=== PATIENT | female | born 1990 | race Caucasian/White ===

== ENCOUNTER 2018-09-07 15:18 | Emergency (ER) | payer OTHER, SELFPAY ==
--- NOTE | 2018-09-07 16:58 | RAD REPORT ---
EXAM DESCRIPTION: RAD - Chest Single View - 09/07/2018 4:45 pm CLINICAL HISTORY: CHEST PAIN Chest pain. COMPARISON: No comparisons FINDINGS: Portable technique limits examination quality. The lungs are grossly clear. The heart is normal in size. No displaced fractures. IMPRESSION: No acute intrathoracic process suspected.
[2018-09-07] MEDS ORDERED: KETOROLAC 30 MG/ML INJ ONE (17:49)
[2018-09-07 19:17] LABS: Urine Blood NEGATIVE (NEG); Urine Glucose NEGATIVE (NEG); Urine Protein NEGATIVE (NEG)
[2018-09-07 19:18] LABS: Absolute Lymphocytes (CBC) 2.4 K/uL (0.7-4.9); Absolute Monocytes 0.4 K/uL (0.1-1.3); Absolute Neutrophil 8.3 K/uL (1.8-8.0); Basophils % 1.4 % (0-1.3); Eosinophils % 1.3 % (0-4.4); Lymphocytes % 20.7 % (15.3-44.8); MCH 28.3 pg (27.0-35.0); MCV 83.5 fL (80-100); MPV 9.2 fL (7.6-11.3); Monocytes % 3.7 % (3.3-12.3); RBC Red Blood Cell Count 5.86 M/uL (3.86-4.86)
[2018-09-07 19:23] LABS: BUN Blood Urea Nitrogen 11 mg/dL (7-18); Bicarbonate 25 mmol/L (21-32); Glucose Level 86 mg/dL (74-106); Potassium 3.7 mmol/L (3.5-5.1); Sodium Level 140 mmol/L (136-145); Troponin (Emerg Dept Use Only) < 0.02 ng/mL (0.0-0.045)
[2018-09-07] MEDS ORDERED: MORPHINE 4 MG/ML SYR ONE (19:43)
[2018-09-07] MEDS ORDERED: ONDANSETRON 4 MG/2 ML VIAL ONE (19:43)
[2018-09-07] MEDS ORDERED: DEXAMETHASONE 4 MG/ML VIAL ONE (20:07)
[2018-09-07] MEDS ORDERED: DIPHENHYDRAMINE 50 MG/ML VIAL ONE (20:07)
[2018-09-07] MEDS ORDERED: FAMOTIDINE 20 MG/2 ML VIAL IV ONE (20:08)
--- NOTE | 2018-09-07 20:30 | ER ---
Nurse's Notes [facility] Name: Lisa Vazquez Age: 28 yrs Sex: Female : 1990 Arrival Date: 09/07/2018 Time: 15:19 Bed 10 Private MD: out of town, doctor Diagnosis: Other chest pain Presentation: 09/07 15:30 Presenting complaint: Patient states: Pain to sternum that started suddenly when aj patient turned to reach for something. Patient reports pain is reproducible with deep inspiration and sometimes with movement. Transition of care: patient was not received from another setting of care. Onset of symptoms was September 07, 2018. Risk Assessment: Do you want to hurt yourself or someone else? Patient reports no desire to harm self or others. Initial Sepsis Screen: Does the patient meet any 2 criteria? No. Patient's initial sepsis screen is negative. Does the patient have a suspected source of infection? No. Patient's initial sepsis screen is negative. Note Patient drove herself to ER and ambulated in with steady gait. Care prior to arrival: None. 15:30 Method Of Arrival: Ambulatory 15:30 Acuity: KRISTA 4 15:32 Note Patient is making phone call while in triage, in NAD. Triage Assessment: 15:32 General: Appears in no apparent distress. comfortable, Behavior is calm, cooperative, aj appropriate for age. Pain: Complains of pain in mid-sternal area. Neuro: Level of Consciousness is awake, alert, obeys commands, Oriented to person, place, time, situation, Appropriate for age. Cardiovascular: Capillary refill < 3 seconds in bilateral fingers Patient's skin is warm and dry. Respiratory: Reports pain with respiration Airway is patent Respiratory effort is even, unlabored, Respiratory pattern is regular, symmetrical. Derm: Skin is intact, is healthy with good turgor, Skin is pink, warm \T\ dry. normal. 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 - Social history:: Smoking status: Patient/guardian denies using tobacco. - Ebola Screening: : Patient negative for fever greater than or equal to 101.5 degrees Fahrenheit, and additional compatible Ebola Virus Disease symptoms Patient denies exposure to infectious person Patient denies travel to an Ebola-affected area in the 21 days before illness onset No symptoms or risks identified at this time. Screenin:21 Abuse screen: Denies threats or abuse. Denies injuries from another. Nutritional iw screening: No deficits noted. Tuberculosis screening: No symptoms or risk factors identified. Fall Risk None identified. Assessment: 16:18 General: Appears uncomfortable, Behavior is cooperative. Pain: Complains of pain in iw mid-sternal area Pain radiates to right scapular area Pain currently is 8 out of 10 on a pain scale. Pain began 2 hours ago. Is continuous. Neuro: No deficits noted. Level of Consciousness is awake, alert, obeys commands, Oriented to person, place, time, situation, Moves all extremities. Full function. Cardiovascular: Patient's skin is warm and dry. Respiratory: Respiratory effort is even, unlabored, Respiratory pattern is regular, symmetrical. Derm: Skin is intact, is healthy with good turgor. Musculoskeletal: Range of motion: intact in all extremities. 19:10 Reassessment: Patient and/or family updated on plan of care and expected duration. Pain iw level reassessed. Patient is alert, oriented x 3, equal unlabored respirations, skin warm/dry/pink. pt rates pain 6/10. 19:50 Reassessment: During middle of morphine admin, it is noted that there is mild redness ss to R forearm. Pt reports mild itching. Administration stopped. 2 mg of morphine given. Pt denies CP, SOB. UZIEL Lakhani notified. Respiratory: Airway is patent Respiratory effort is even, unlabored, Respiratory pattern is regular, symmetrical, Breath sounds are clear bilaterally. 20:13 Reassessment: Patient appears in no apparent distress at this time. Patient and/or ss family updated on plan of care and expected duration. Pain level reassessed. Patient is alert, oriented x 3, equal unlabored respirations, skin warm/dry/pink. Patient denies pain at this time. Patient states feeling better. Patient states symptoms have improved. 20:40 Reassessment: Patient appears in no apparent distress at this time. Patient and/or ss family updated on plan of care and expected duration. Pain level reassessed. Patient is alert, oriented x 3, equal unlabored respirations, skin warm/dry/pink. Patient denies pain at this time. Patient states feeling better. Patient states symptoms have improved. Vital Signs: 15:32 BP 128 / 85; Pulse 105; Resp 20; Temp 97.9; Pulse Ox 100% on R/A; Weight 77.11 kg; aj Height 5 ft. 6 in. (167.64 cm); 19:10 BP 115 / 63; Pulse 73; Resp 16; Pulse Ox 100% on R/A; Pain 6/10; iw 15:32 Body Mass Index 27.44 (77.11 kg, 167.64 cm) aj ED Course: 15:19 Patient arrived in ED. mr 15:19 out of town, doctor is Private Physician. mr 15:31 Triage completed. aj 15:32 Arm band placed on left wrist. Patient placed in waiting room, Patient notified of wait aj time. 16:01 Joey Plunkett PA is PHCP. [facility] 16:01 Fahad Hussein MD is Attending Physician. [facility] 16:01 Zack Zelaya, RABIA is Primary Nurse. sg 16:31 EKG done, by kennel technician. reviewed by Joey TRIPLETT. sm3 16:47 Chest Single View XRAY In Process Unspecified. EDMS 18:45 Initial lab(s) drawn, by ct, sent to lab. jp3 18:50 Inserted saline lock: 22 gauge in right forearm, using aseptic technique. Blood jp3 collected. 18:50 CBC with Automated Diff Sent. jp3 18:50 D-Dimer Sent. jp3 18:50 BMP Sent. jp3 18:50 Troponin (emerg Dept Use Only) Sent. jp3 18:50 CBC with Diff Sent. jp3 19:12 Patient has correct armband on for positive identification. Pulse ox on. NIBP on. iw 20:38 No provider procedures requiring assistance completed. IV discontinued, intact, ss bleeding controlled, No redness/swelling at site. Pressure dressing applied. Patient maintains SpO2 saturation greater than 95% on room air. Administered Medications: 08:10 Drug: Decadron - Dexamethasone 10 mg Route: IVP; Site: right forearm; ss 20:40 Follow up: Response: No adverse reaction; Marked relief of symptoms 08:10 Drug: Pepcid 20 mg Route: IVP; Site: right forearm; ss 20:40 Follow up: Response: No adverse reaction; Marked relief of symptoms ss 17:45 Drug: Ketorolac 30 mg Route: IM; Site: right deltoid; iw 19:12 Follow up: Response: No adverse reaction; Pain is unchanged, physician notified iw 19:35 Drug: Zofran 4 mg Route: IVP; Site: right forearm; ss 19:49 Follow up: Response: No adverse reaction ss 19:38 Drug: morphine 4 mg {Note: redness noted to R forearm shortly after administration of 2 ss mg Morphine. Administration stopped and Joey Plunkett notified. PT c/o mild itching. Denies SOB.} Route: IVP; Site: right forearm; 19:49 Follow up: Response: Adverse reaction, Physician notified; Adverse reaction, Physician ss notified. Mild redness and itching noted to R forearm. Medicaiton admin stopped. Joey plunkett notified. Pt denies CP at this time after emergency medical dispatcher and denies SOB 20:13 Drug: Benadryl 25 mg Route: IVP; Site: right forearm; ss 20:40 Follow up: Response: No adverse reaction; Marked relief of symptoms ss Outcome: 20:29 Discharge ordered by . ana luisa 20:38 Discharged to home ambulatory, with family. ss 20:38 Condition: good 20:38 Discharge instructions given to patient, family, Instructed on discharge instructions, follow up and referral plans. medication usage, Demonstrated understanding of instructions, follow-up care, medications. 20:39 Patient left the ED. ss Signatures: Dispatcher [employer] EDMS Zack Zelaya RN RN sg Myers, Amanda RN Joey Van PA PA jmm Rivera, Mary mr Vivi Mock RN RN iw Smirch, Shelby, RN RN ss Montes, Shakira 3 Jamey Ritchie jp3 Corrections: (The following items were deleted from the chart) 19:49 19:38 morphine 4 mg IVP in right forearm ss ss
--- NOTE | 2018-09-07 20:30 | EDPHYS ---
Physician Documentation [facility] Name: Lisa Vazquez Age: 28 yrs Sex: Female : 1990 Arrival Date: 09/07/2018 Time: 15:19 Bed 10 Private MD: out of town, doctor ED Physician Fahad Hussein HPI: 09/07 16:05 This 28 yrs old Female presents to ER via Ambulatory with complaints of Chest jmm Wall Pain. 16:05 The patient or guardian reports chest pain that is located primarily in the anterior [facility] chest wall. The pain does not radiate. The chest pain is described as sharp. Duration: The patient or guardian reports a single episode. This is a 28 year old female with a history of asthma that presents to the ED with mid chest wall pain. Patient states the pain developed after getting up out of a chair. Pain is worsned with movement. Denies SOB, legs swelling, recent travel, control use, history of PE/DVT. . 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 - Social history:: Smoking status: Patient/guardian denies using tobacco. - Ebola Screening: : Patient negative for fever greater than or equal to 101.5 degrees Fahrenheit, and additional compatible Ebola Virus Disease symptoms Patient denies exposure to infectious person Patient denies travel to an Ebola-affected area in the 21 days before illness onset No symptoms or risks identified at this time. ROS: 16:05 Constitutional: Negative for fever, chills, and weight loss. jmm 16:05 Respiratory: Negative for shortness of breath, cough, wheezing, and pleuritic chest pain, Abdomen/GI: Negative for abdominal pain, nausea, vomiting, diarrhea, and constipation, MS/Extremity: Negative for injury and deformity, Skin: Negative for injury, rash, and discoloration, Neuro: Negative for headache, weakness, numbness, tingling, and seizure. 16:05 Cardiovascular: Positive for chest pain. 16:05 All other systems are negative. Exam: 16:05 Head/Face: atraumatic. [facility] 16:05 Skin: General appearance color normal MS/ Extremity: Moves all extremities, no obvious deformities appreciated, no edema noted to the lower extremities Neuro: Awake and alert, normal gait Psych: Behavior is normal, Mood is normal, Patient is cooperative and pleasant 16:05 Constitutional: The patient appears in no acute distress, alert, awake. 16:05 Chest/axilla: Palpation: tenderness, that is moderate, that totally reproduces the patient's complaints. 16:05 Cardiovascular: Rate: normal, Rhythm: regular, Pulses: no pulse deficits are appreciated. 16:05 Respiratory: the patient does not display signs of respiratory distress, Respirations: normal, Breath sounds: are clear throughout. 16:05 Abdomen/GI: Inspection: abdomen appears normal, Bowel sounds: normal, Palpation: abdomen is soft and non-tender, in all quadrants. 16:05 Musculoskeletal/extremity: ROM: intact in all extremities. 16:29 ECG was reviewed by the Attending Physician. [facility] Vital Signs: 15:32 BP 128 / 85; Pulse 105; Resp 20; Temp 97.9; Pulse Ox 100% on R/A; Weight 77.11 kg; aj Height 5 ft. 6 in. (167.64 cm); 19:10 BP 115 / 63; Pulse 73; Resp 16; Pulse Ox 100% on R/A; Pain 6/10; iw 15:32 Body Mass Index 27.44 (77.11 kg, 167.64 cm) aj MDM: 16:24 Patient medically screened. [facility] 17:48 Data reviewed: vital signs, nurses notes. Data interpreted: Pulse oximetry: on room air [facility] is 100 %. ED course: Patient's symptoms appear most likely due to chest wall pain. Patient is at low risk for acs. Patient advised to follow up with PCP or return to the ED if symptoms worsen. Patient understood and agree with the plan of care. Wells score for PE = 1.5. 19:37 Data reviewed: lab test result(s). Counseling: I had a detailed discussion with the [facility] patient and/or guardian regarding: the historical points, exam findings, and any diagnostic results supporting the discharge/admit diagnosis, lab results, radiology results, the need for outpatient follow up, to return to the emergency department if symptoms worsen or persist or if there are any questions or concerns that arise at home. 09/07 18:25 Order name: CBC with Diff [facility] 09/07 18:25 Order name: Troponin (emerg Dept Use Only); Complete Time: 20:21 [facility] 09/07 18:25 Order name: BMP; Complete Time: 20:21 [facility] 09/07 18:25 Order name: D-Dimer; Complete Time: 20:21 [facility] 09/07 18:25 Order name: CBC with Automated Diff; Complete Time: 20:21 [facility] 09/07 19:16 Order name: Urine Dipstick--Ancillary (enter results); Complete Time: 20:21 [facility] 09/07 16:04 Order name: Chest Single View XRAY; Complete Time: 17:22 [facility] 09/07 19:16 Order name: Urine --Ancillary (enter results); Complete Time: 20:21 [facility] 09/07 16:04 Order name: EKG - Nurse/Tech; Complete Time: 16:07 [facility] 09/07 17:58 Order name: EKG Electrocardiogram; Complete Time: 18:51 [facility] 09/07 18:25 Order name: Urine Test (obtain specimen); Complete Time: 19:12 jmm EC:29 Rate is 83 beats/min. QRS Taylor is Normal. NC interval is normal. QRS interval is jmm normal. QT interval is normal. No Q waves. T waves are Normal. No ST changes noted. Administered Medications: 08:10 Drug: Decadron - Dexamethasone 10 mg Route: IVP; Site: right forearm; ss 20:40 Follow up: Response: No adverse reaction; Marked relief of symptoms ss 08:10 Drug: Pepcid 20 mg Route: IVP; Site: right forearm; ss 20:40 Follow up: Response: No adverse reaction; Marked relief of symptoms ss 17:45 Drug: Ketorolac 30 mg Route: IM; Site: right deltoid; iw 19:12 Follow up: Response: No adverse reaction; Pain is unchanged, physician notified iw 19:35 Drug: Zofran 4 mg Route: IVP; Site: right forearm; ss 19:49 Follow up: Response: No adverse reaction ss 19:38 Drug: morphine 4 mg {Note: redness noted to R forearm shortly after administration of 2 ss mg Morphine. Administration stopped and Joey Plunkett notified. PT c/o mild itching. Denies SOB.} Route: IVP; Site: right forearm; 19:49 Follow up: Response: Adverse reaction, Physician notified; Adverse reaction, Physician ss notified. Mild redness and itching noted to R forearm. Medicaiton admin stopped. Joey plunkett notified. Pt denies CP at this time after mediator and denies SOB 20:13 Drug: Benadryl 25 mg Route: IVP; Site: right forearm; ss 20:40 Follow up: Response: No adverse reaction; Marked relief of symptoms ss Disposition: 09/08 13:55 Co-signature as Attending Physician, Fahad Hussein MD I agree with the assessment and kdr plan of care. Disposition: 09/07/18 20:29 Discharged to Home. Impression: Other chest pain. - Condition is Stable. - Discharge Instructions: Nonspecific Chest Pain. - Prescriptions for Ibuprofen 800 mg Oral Tablet - take 1 tablet by ORAL route every 8 hours As needed take with food; 30 tablet. - Medication Reconciliation Form, Thank You Letter, Antibiotic Education, Prescription Opioid Use form. - Follow up: Private Physician; When: 2 - 3 days; Reason: Recheck today's complaints, Continuance of care, Re-evaluation by your physician. Signatures: Dispatcher [employer] EDBeth Peña, Fahad Martinez RN, MD MD kdr Mickail, Joel, PA PA jmm Williams, Irene, RABIA CAMARILLO Lovely Mott RN RN ss Corrections: (The following items were deleted from the chart) 09/07 20:39 20:29 09/07/2018 20:29 Discharged to Home. Impression: Other chest pain. Condition is ss Stable. Forms are Medication Reconciliation Form, Thank You Letter, Antibiotic Education, Prescription Opioid Use. Follow up: Private Physician; When: 2 - 3 days; Reason: Recheck today's complaints, Continuance of care, Re-evaluation by your physician. ana luisa
[2018-09-07 20:48] VITALS: TEMP 97.9; O2SAT 100
[2018-09-07 20:49] VITALS: BP 115/63
--- NOTE | 2018-09-08 12:35 | EKG ---
Test Date: 2018-09-07 Test Time: 16:16:03 Hydrocrane Operator: ALEXANDREA MEASUREMENT RESULTS: Intervals: Rate: 83 NC: 146 QRSD: 74 QT: 370 QTc: 434 [place]: P: 56 NC: 146 QRS: 79 T: 37 INTERPRETIVE STATEMENTS: Normal sinus rhythm with sinus arrhythmia Normal ECG Compared to ECG 09/20/2015 20:10:55 Sinus bradycardia no longer present Electronically Signed On 09-08-18 12:33:06 PSYCHOLOGICAL STRESS EVALUATOR by Serge De
== END 2018-09-07 20:39 | disposition home or self-care (01) ==
LOC: ER 15:18
DX: R07.89 Other chest pain (principal); J45.909 Unspecified asthma, uncomplicated; Z88.1 Allergy status to other antibiotic agents
CPT/HCPCS: 36415; 71045; 80048; 81003; 81025; 84484; 85025; 85379; 93005; 96372; 96374; 96375; 99284; J2405

== ENCOUNTER 2019-09-24 22:12 | Emergency (ER) | payer OTHER, SELFPAY ==
[2019-09-24] MEDS ORDERED: NA CHLORIDE 0.9% 1,000 ML ONE (22:34)
[2019-09-24] MEDS ORDERED: MEPERIDINE HCL 25 MG/0.5 ML ONE (22:34)
[2019-09-24] MEDS ORDERED: ONDANSETRON 4 MG/2 ML VIAL ONE (22:34)
[2019-09-24 22:56] LABS: Basophils % 0.5 % (0-1.3); Hematocrit 45.9 % (36.0-45.0); Lymphocytes % 35.5 % (15.3-44.8); MPV 9.3 fL (7.6-11.3); RBC Red Blood Cell Count 5.53 M/uL (3.86-4.86)
[2019-09-24 22:58] LABS: Urine Blood TRACE (NEG); Urine Glucose NEGATIVE (NEG); Urine Protein NEGATIVE (NEG); Urine Specific Gravity 1.025 (1.005-1.030)
[2019-09-24 23:12] LABS: Albumin 3.8 g/dL (3.4-5.0); Bilirubin Direct 0.1 mg/dL (0-0.2); Bilirubin Total 0.5 mg/dL (0.2-1.0); Potassium 3.6 mmol/L (3.5-5.1); Protein, Total 7.5 g/dL (6.4-8.2)
[2019-09-25] MEDS ORDERED: ONDANSETRON 4 MG/2 ML VIAL ONE (01:31)
--- NOTE | 2019-09-25 02:36 | EDPHYS ---
Physician Documentation [facility] Name: Lisa Vazquez Age: 29 yrs Sex: Female : 1990 Arrival Date: 09/24/2019 Time: 22:16 Bed 25 Private MD: ED Physician Fahad Hussein HPI: 09/24 22:49 This 29 yrs old Female presents to ER via Ambulatory with complaints of kdr Abdominal Pain, Back Pain. 22:50 The patient presents with abdominal pain in the epigastric area, in the upper abdomen. kdr Onset: The symptoms/episode began/occurred suddenly, just prior to arrival, today. The symptoms radiate to back, both flanks, radiates up back and into neck. Associated signs and symptoms: Pertinent positives: nausea and vomiting, diarrhea, Pertinent negatives: blood in stools, constipation, dysuria, fever, headache, hematuria, palpitations, shortness of breath. The symptoms are described as achy, vague, waxing/waning. Modifying factors: The symptoms are alleviated by nothing, the symptoms are aggravated by breathing deeply, movement. Severity of pain: At its worst the pain was severe incapacitating in the emergency department the pain is unchanged. The patient has experienced a previous episode, last night. The patient has not recently seen a physician. 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 - Social history:: Smoking status: Patient/guardian denies using tobacco, Patient/guardian denies using alcohol, street drugs, IV drugs. - Ebola Screening: : No symptoms or risks identified at this time. ROS: 22:50 Constitutional: Negative for fever, chills, and weight loss, Eyes: Negative for injury, kdr pain, redness, and discharge, Neck: Negative for injury, pain, and swelling, Cardiovascular: Negative for chest pain, palpitations, and edema, Respiratory: Negative for shortness of breath, cough, wheezing, and pleuritic chest pain, : Negative for injury, bleeding, discharge, and swelling, MS/Extremity: Negative for injury and deformity, Skin: Negative for injury, rash, and discoloration, Neuro: Negative for headache, weakness, numbness, tingling, and seizure activity. Psych: Negative for depression, anxiety, suicide ideation, homicidal ideation, and hallucinations, Allergy/Immunology: Negative for hives, rash, and allergies, Endocrine: Negative for neck swelling, polydipsia, polyuria, polyphagia, and marked weight changes, Hematologic/Lymphatic: Negative for swollen nodes, abnormal bleeding, and unusual bruising. 22:50 Abdomen/GI: Positive for abdominal pain, nausea and vomiting, diarrhea, Negative for black/tarry stool, rectal pain, rectal bleeding, bowel incontinence, flatulence. Exam: 22:50 Constitutional: This is a well developed, well nourished patient who is awake, alert, kdr and in no acute distress. Head/Face: Normocephalic, atraumatic. Eyes: Pupils equal round and reactive to light, extra-ocular motions intact. Lids and lashes normal. Conjunctiva and sclera are non-icteric and not injected. Cornea within normal limits. Periorbital areas with no swelling, redness, or edema. Neck: Trachea midline, no thyromegaly or masses palpated, and no cervical lymphadenopathy. Supple, full range of motion without nuchal rigidity, or vertebral point tenderness. No Meningismus. Chest/axilla: Normal chest wall appearance and motion. Nontender with no deformity. No lesions are appreciated. Cardiovascular: Regular rate and rhythm with a normal S1 and S2. No gallops, murmurs, or rubs. Normal PMI, no JVD. No pulse deficits. Respiratory: Lungs have equal breath sounds bilaterally, clear to auscultation and percussion. No rales, rhonchi or wheezes noted. No increased work of breathing, no retractions or nasal flaring. Back: No spinal tenderness. No costovertebral tenderness. Full range of motion. Skin: Warm, dry with normal turgor. Normal color with no rashes, no lesions, and no evidence of cellulitis. MS/ Extremity: Pulses equal, no cyanosis. Neurovascular intact. Full, normal range of motion. Neuro: Awake and alert, GCS 15, oriented to person, place, time, and situation. Cranial nerves II-XII grossly intact. Motor strength 5/5 in all extremities. Sensory grossly intact. Cerebellar exam normal. Normal gait. Psych: Awake, alert, with orientation to person, place and time. Behavior, mood, and affect are within normal limits. 22:50 Abdomen/GI: Inspection: abdomen appears normal, obese Bowel sounds: diminished, in all quadrants, Palpation: soft, mild abdominal tenderness, in the posterior aspect of right lateral abdomen, posterior aspect of left lateral abdomen, right upper quadrant and left upper quadrant. Vital Signs: 22:37 BP 132 / 87; Pulse 112; Resp 18; Temp 97.8; Pulse Ox 100% on R/A; Weight 79.38 kg; mg2 Height 5 ft. 6 in. (167.64 cm); Pain 10/10; 23:21 BP 115 / 68; Pulse 65; Resp 18; Pulse Ox 100% on R/A; Pain 5/10; mg2 09/25 00:58 BP 106 / 63; Pulse 83; Resp 14 S; Temp 97.9(O); Pulse Ox 100% on R/A; Pain 1/10; bb 02:34 BP 106 / 70; Pulse 82; Resp 17 S; Temp 97.7(O); Pulse Ox 100% on R/A; bb 09/24 22:37 Body Mass Index 28.25 (79.38 kg, 167.64 cm) mg2 MDM: 09/24 22:50 Data reviewed: vital signs, nurses notes, lab test result(s), radiologic studies. kdr Counseling: I had a detailed discussion with the patient and/or guardian regarding: the historical points, exam findings, and any diagnostic results supporting the discharge/admit diagnosis, lab results, radiology results, the need for outpatient follow up. 09/25 02:35 Patient medically screened. snw 09/24 22:41 Order name: Basic Metabolic Panel; Complete Time: 23:29 mg2 09/25 01:38 Interpretation: Normal except: CL 108; GFR 69. tw4 09/24 22:41 Order name: CBC with Diff; Complete Time: 23:29 mg2 09/25 01:39 Interpretation: Normal except: WBC 11.4; RBC 5.53; HGB 15.7; HCT 45.9. tw4 09/24 22:41 Order name: Creatinine for Radiology; Complete Time: 23:29 mg2 09/24 22:41 Order name: Hepatic Function; Complete Time: 23:29 mg2 09/25 01:39 Interpretation: Normal except: AST 39; GLOB 3.7; A/G 1.0. tw4 09/24 22:41 Order name: Lipase; Complete Time: 23:29 mg2 09/24 22:18 Order name: EKG; Complete Time: 22:20 kdr 09/24 22:18 Order name: IV Saline Lock; Complete Time: 22:40 kdr 09/24 22:18 Order name: Labs collected and sent; Complete Time: 22:40 kdr 09/24 22:18 Order name: Urine Dipstick-Ancillary (obtain specimen); Complete Time: 22:40 kdr 09/24 22:55 Order name: Urine Dipstick--Ancillary (enter results); Complete Time: 23:29 mt 09/25 01:39 Interpretation: Normal except: UBLD TRACE. tw4 09/24 22:55 Order name: Urine --Ancillary (enter results); Complete Time: 23:29 mt 09/24 23:29 Order name: CT Abd/Pelvis - IV Contrast Only kdr 09/25 01:09 Order name: Troponin (emerg Dept Use Only); Complete Time: 02:28 kdr 09/25 01:09 Order name: EKG - Nurse/Tech; Complete Time: 01:29 kdr EC:33 Rate is 61 beats/min. QRS [place] is Normal. LA interval is normal. QRS interval is tw4 normal. QT interval is normal. No Q waves. T waves are Normal. No ST changes noted. Clinical impression: Abnormal EKG without significant change. Interpreted by me. Reviewed by me. Administered Medications: 09/24 22:39 Drug: NS 0.9% 1000 ml Route: IV; Rate: 1 bolus; Site: left forearm; mg2 22:40 Drug: Demerol 25 mg Route: IVP; Site: left forearm; mg2 23:10 Follow up: Response: No adverse reaction; Marked relief of symptoms mg2 22:40 Drug: Zofran 4 mg Route: IVP; Site: left forearm; mg2 23:10 Follow up: Response: No adverse reaction; Marked relief of symptoms mg2 09/25 01:29 Drug: Zofran 4 mg Route: IVP; Site: left forearm; bb 02:11 Follow up: Response: No adverse reaction bb Disposition: 09/25/19 02:35 Discharged to Home. Impression: Cholelithiasis, Biliary colic. - Condition is Stable. - Discharge Instructions: Biliary Colic, Adult, Fat and Cholesterol Restricted Diet, Cholelithiasis. - Prescriptions for Bentyl 20 mg Oral Tablet - take 2 tablet by ORAL route every 6 hours As needed; 40 tablet. promethazine 25 mg Oral Tablet - take 1 tablet by ORAL route every 6 hours As needed; 20 tablet. - Work release form, Medication Reconciliation Form, Thank You Letter, Antibiotic Education, Prescription Opioid Use form. - Follow up: Private Physician; When: Tomorrow; Reason: Recheck today's complaints, Continuance of care, Re-evaluation by your physician. Follow up: Emergency Department; When: As needed; Reason: Worsening of condition. Signatures: Dispatcher [employer] EDMS Fahad Hussein MD MD kdr Elise Laguna, LOG SORTING SUPERVISOR-C LOG SORTING SUPERVISOR-Csnw Quita Canales, RABIA RN bb Jean-Pierre Kenney MD MD tw4 Barry Kingston RN RN mg2 Corrections: (The following items were deleted from the chart) 09/24 22:39 22:18 EKG - Nurse/Tech ordered. kdr mg2 23:18 22:20 URINE DRUG SCREEN+CHEM UR.LAB.BRZ ordered. EDMS EDMS 23:19 22:19 CBC+H.LAB.BRZ ordered. EDMS EDMS 23:19 22:20 PROTIME (+INR)+COAG.LAB.BRZ ordered. EDMS EDMS 23:19 22:20 PTT, ACTIVATED+COAG.LAB.BRZ ordered. EDMS EDMS 23:19 22:20 SALICYLATE+C.LAB.BRZ ordered. EDMS EDMS 23:20 22:19 ACETAMINOPHEN+C.LAB.BRZ ordered. EDMS EDMS 23:20 22:19 BASIC METABOLIC PANEL+C.LAB.BRZ ordered. EDMS EDMS 23:20 22:20 ETHANOL+C.LAB.BRZ ordered. EDMS EDMS 23:20 22:20 HEPATIC FUNCTION+C.LAB.BRZ ordered. EDPA EDMS 09/25 02:48 02:35 09/25/2019 02:35 Discharged to Home. Impression: Cholelithiasis; Biliary colic. bb Condition is Stable. Forms are Medication Reconciliation Form, Thank You Letter, Antibiotic Education, Prescription Opioid Use. Follow up: Private Physician; When: Tomorrow; Reason: Recheck today's complaints, Continuance of care, Re-evaluation by your physician. Follow up: Emergency Department; When: As needed; Reason: Worsening of condition. jagdeep
--- NOTE | 2019-09-25 02:36 | ER ---
Nurse's Notes [facility] Name: Lisa Vazquez Age: 29 yrs Sex: Female : 1990 Arrival Date: 09/24/2019 Time: 22:16 Bed 25 Private MD: Diagnosis: Cholelithiasis;Biliary colic Presentation: 09/24 22:15 Presenting complaint: Patient states: i have history of gall stones, at 2130 i started mg2 to have severe abdominal pain radiating to my back with n/v. Transition of care: patient was not received from another setting of care. Onset of symptoms was September 24, 2019. 22:15 Method Of Arrival: Ambulatory mg2 22:15 Risk Assessment: Do you want to hurt yourself or someone else? Patient reports no mg2 desire to harm self or others. Initial Sepsis Screen: Does the patient meet any 2 criteria? No. Patient's initial sepsis screen is negative. Does the patient have a suspected source of infection? No. Patient's initial sepsis screen is negative. Care prior to arrival: None. 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 - Social history:: Smoking status: Patient/guardian denies using tobacco, Patient/guardian denies using alcohol, street drugs, IV drugs. - Ebola Screening: : No symptoms or risks identified at this time. Screenin:44 Abuse screen: Denies threats or abuse. Denies injuries from another. Nutritional mg2 screening: No deficits noted. Tuberculosis screening: No symptoms or risk factors identified. Fall Risk IV access (20 points). Assessment: 22:42 General: Appears in no apparent distress. uncomfortable, Behavior is calm, cooperative. mg2 Pain: Complains of pain in abdomen Pain radiates to back Pain at worst was 10 out of 10 on a pain scale. Quality of pain is described as aching, Pain began suddenly, 1 hour ago. Is continuous. Neuro: Level of Consciousness is awake, alert, obeys commands, Oriented to person, place, time, situation. Cardiovascular: Capillary refill < 3 seconds Patient's skin is warm and dry. Respiratory: Airway is patent Respiratory effort is even, unlabored, Respiratory pattern is regular, symmetrical. GI: Abdomen is flat, Bowel sounds present X 4 quads. Abd is soft Reports lower abdominal pain, upper abdominal pain, nausea, vomiting. : No signs and/or symptoms were reported regarding the genitourinary system. EENT: No signs and/or symptoms were reported regarding the EENT system. Derm: Skin is intact, is healthy with good turgor, Skin is pink, warm \T\ dry. normal. Musculoskeletal: Circulation, motion, and sensation intact. Capillary refill < 3 seconds. 23:22 Reassessment: Patient appears in no apparent distress at this time. Patient and/or mg2 family updated on plan of care and expected duration. Pain level reassessed. Patient is alert, oriented x 3, equal unlabored respirations, skin warm/dry/pink. Patient states feeling better. 09/25 00:58 Reassessment: Patient is alert, oriented x 3, equal unlabored respirations, skin bb warm/dry/pink. pt resting quietly, states pain is 1/10, family at bedside awaiting diagnostic results. 02:32 Reassessment: Patient and/or family updated on plan of care and expected duration. Pain bb level reassessed. Patient is alert, oriented x 3, equal unlabored respirations, skin warm/dry/pink. pt resting quietly, no complaints, state she is feeling better, family at bedside awaiting disposition. 02:47 Reassessment: Pt verbalized understanding of and agrees to plan of care discharge bb instructions given pt ambulated with steady gait to exit accompanied by spouse. Vital Signs: 09/24 22:37 BP 132 / 87; Pulse 112; Resp 18; Temp 97.8; Pulse Ox 100% on R/A; Weight 79.38 kg; mg2 Height 5 ft. 6 in. (167.64 cm); Pain 10/10; 23:21 BP 115 / 68; Pulse 65; Resp 18; Pulse Ox 100% on R/A; Pain 5/10; mg2 09/25 00:58 BP 106 / 63; Pulse 83; Resp 14 S; Temp 97.9(O); Pulse Ox 100% on R/A; Pain 1/10; bb 02:34 BP 106 / 70; Pulse 82; Resp 17 S; Temp 97.7(O); Pulse Ox 100% on R/A; bb 09/24 22:37 Body Mass Index 28.25 (79.38 kg, 167.64 cm) mg2 ED Course: 09/24 22:16 Patient arrived in ED. [email or web address] 22:17 Fahad Hussein MD is Attending Physician. kdr 22:31 Barry Kingston, RN is Primary Nurse. mg2 22:37 Triage completed. mg2 22:38 Arm band placed on. mg2 22:44 No provider procedures requiring assistance completed. Inserted saline lock: 22 gauge mg2 in left forearm, using aseptic technique. Blood collected. 12 00:02 Patient has correct armband on for positive identification. Pulse ox on. NIBP on. Door mg2 closed. Warm blanket given. 00:22 CT Abd/Pelvis - IV Contrast Only In Process Unspecified. EDMS 02:47 IV discontinued, intact, bleeding controlled, No redness/swelling at site. Pressure bb dressing applied. Administered Medications: 09/24 22:39 Drug: NS 0.9% 1000 ml Route: IV; Rate: 1 bolus; Site: left forearm; mg2 22:40 Drug: Demerol 25 mg Route: IVP; Site: left forearm; mg2 23:10 Follow up: Response: No adverse reaction; Marked relief of symptoms mg2 22:40 Drug: Zofran 4 mg Route: IVP; Site: left forearm; mg2 23:10 Follow up: Response: No adverse reaction; Marked relief of symptoms mg2 09/25 01:29 Drug: Zofran 4 mg Route: IVP; Site: left forearm; bb 02:11 Follow up: Response: No adverse reaction bb Outcome: 02:35 Discharge ordered by . snw 02:47 Discharged to home ambulatory, with family. bb 02:47 Condition: stable 02:47 Discharge instructions given to patient, Instructed on discharge instructions, follow up and referral plans. medication usage, Demonstrated understanding of instructions, follow-up care, medications, Prescriptions given X 2. 02:48 Patient left the ED. bb Signatures: Dispatcher [employer] EDMS Fahad Hussein MD MD kdr Therrien, Shelly, WELL PULLER HEAD-C WELL PULLER HEAD-Csnw Quita Canales, RN RN bb Barry Kingston, RABIA RN mg2 Lorraine Montenegro [email or web address]
[2019-09-25 03:10] VITALS: O2SAT 100
[2019-09-25 03:14] VITALS: BP 106/70; TEMP 97.7
--- NOTE | 2019-09-25 10:04 | EKG ---
Test Date: 2019-09-25 Test Time: 01:28:00 Plumber Cub: MAXINE MEASUREMENT RESULTS: Intervals: Rate: 61 DC: 152 QRSD: 80 QT: 442 QTc: 444 [place]: P: 56 DC: 152 QRS: 80 T: 46 INTERPRETIVE STATEMENTS: Normal sinus rhythm with sinus arrhythmia Normal ECG Compared to ECG 09/07/2018 16:16:03 No significant changes Electronically Signed On 09-25-19 10:03:08 HSE COORDINATOR by Alverto Mendez
--- NOTE | 2019-09-26 11:34 | RAD REPORT ---
EXAM DESCRIPTION: CT - Abdomen Pelvis W Contrast - 09/25/2019 2:40 am CLINICAL HISTORY: ABD PAIN COMPARISON: None. TECHNIQUE: CT ABDOMEN PELVIS WITH IV CONTRAST on 09/24/2019 11:29 PM CAREER SERVICES REPRESENTATIVE This exam was performed according to our departmental dose-optimization program, which includes autom ated exposure control, adjustment of the mA and/or kV according to patient size and/or use of iterati ve reconstruction technique. FINDINGS: Lower lungs are clear. Abdomen: The liver is normal in appearance. There is no biliary dilatation. Gallbladder contains tana ral gallstones. The pancreas and spleen are normal in appearance. The adrenal glands and kidneys are unremarkable. Abdominal aorta is normal in course and caliber without aneurysm. There is no free air. There is no r etroperitoneal adenopathy. Pelvis: There is no bowel obstruction. Urinary bladder is unremarkable. There is no free fluid. Uteru s is normal in size. Appendix is normal. There are bilateral tubal ligation clips. Skeleton: There are no acute osseous findings. No suspicious bony lesions. IMPRESSION: No acute process. Electronically signed by: Power Atkins MD 09/25/2019 12:27 AM CAREER SERVICES REPRESENTATIVE Due to temporary technical issues with the PACS/Fluency reporting system, reports are being signed by the in house radiologist as a courtesy to ensure prompt reporting. The interpreting radiologist is f bongly responsible for the content of the report.
== END 2019-09-25 02:48 | disposition home or self-care (01) ==
LOC: ER 22:12
DX: K80.20 Calculus of gallbladder without cholecystitis without obstruction (principal); K80.50 Calculus of bile duct without cholangitis or cholecystitis without obstruction; Z88.1 Allergy status to other antibiotic agents; Z88.5 Allergy status to narcotic agent
CPT/HCPCS: 93005; 85025; 80048; 36415; 81025; 80076; 81003; 84484; 83690; 74177; 96375; 96374; 99284; Q9967; J2175; J7030; J2405 ×2